=== PATIENT | female | born 1960 | race Caucasian/White ===

== ENCOUNTER 2018-10-20 07:13 | Day surgery (SDC) | payer OTHER ==
[~2018-10-20] VITALS: Ht 157.5 cm; Wt 69.3 kg
[~2018-10-20 07:13] MED LIST: HYDR-3245 PO; LEVO112T4 PO
[2018-10-20 08:15] VITALS: BP 157/91
[2018-10-20] MEDS ORDERED: LACTATED RINGERS 1,000 ML IV SCH (08:21)
[2018-10-20] MEDS ORDERED: FENTANYL PF 250 MCG/5ML ONE (09:03)
[2018-10-20] MEDS ORDERED: MIDAZOLAM 1 MG/ML, 2ML ONE (09:03)
[2018-10-20] MEDS ORDERED: PROPOFOL 50 ML ONE (09:04)
[2018-10-20] MEDS ORDERED: ONDANSETRON ODT 8 MG ONE (09:10)
[2018-10-20] MEDS ORDERED: ACETAMINOPHEN 500 MG TABLET ONE (09:10)
[2018-10-20] MEDS ORDERED: GABAPENTIN 300 MG CAPSULE ONE (09:10)
[2018-10-20] MEDS ORDERED: ONDANSETRON 2MG/ML, 2ML ONE (09:27)
[2018-10-20] MEDS ORDERED: CEFAZOLIN 1,000 MG ONE (09:27)
[2018-10-20] MEDS ORDERED: DEXAMETHASONE 4 MG/ML, 1ML ONE (09:27)
[2018-10-20] MEDS ORDERED: KETOROLAC 30 MG/1 ML ONE (09:27)
[2018-10-20] MEDS ORDERED: GABAPENTIN 300 MG CAPSULE PO ONE (09:30)
[2018-10-20] MEDS ORDERED: ACETAMINOPHEN 500 MG TABLET PO ONE (09:30)
[2018-10-20] MEDS ORDERED: ONDANSETRON ODT 8 MG PO ONE (09:30)
[2018-10-20] MEDS ORDERED: EPHEDRINE 50 MG/ML, 1ML IM PRN (10:00)
[2018-10-20] MEDS ORDERED: MIDAZOLAM 1 MG/ML, 2ML IV PRN (10:00)
[2018-10-20] MEDS ORDERED: PROMETHAZINE 25 MG SUPP PR PRN (10:00)
[2018-10-20] MEDS ORDERED: PROMETHAZINE 12.5 MG SUPP PR PRN (10:00)
[2018-10-20] MEDS ORDERED: MEPERIDINE/PF 25MG/0.5ML IVPush PRN (10:00)
[2018-10-20] MEDS ORDERED: DIPHENHYDRAMINE 50 MG/ML, 1ML IVPush PRN (10:00)
[2018-10-20] MEDS ORDERED: ONDANSETRON ODT 8 MG PO PRN (10:00)
[2018-10-20] MEDS ORDERED: ONDANSETRON 2MG/ML, 2ML IV PRN (10:00)
[2018-10-20] MEDS ORDERED: OXYcodone 5 MG/5 ML ORAL.SOL UDC ONE ×2 (10:43→11:15)
[2018-10-20] MEDS ORDERED: FENTANYL PF 100 MCG/2ML ONE (10:43)
[2018-10-20] MEDS: OXYcodone 5 MG/5 ML ORAL.SOL UDC PO PRN ×2 (10:45→11:19)
[2018-10-20] MEDS: FENTANYL PF 100 MCG/2ML IV PRN ×2 (10:47→10:59)
[2018-10-20] MEDS ORDERED: morphine SULFATE 10 MG/ML, 1ML ONE ×2 (11:15→11:59)
[2018-10-20] MEDS: MORPHINE SULFATE 4 MG/ML, 1ML IVPush PRN ×4 (11:19→12:00)
== END 2018-10-20 16:25 | disposition home or self-care (01) ==
LOC: OUT 07:13
PROVIDERS: ATTEND Orthopaedic Surgery
DX: S82.092A Other fracture of left patella, initial encounter for closed fracture (principal); W19.XXXA Unspecified fall, initial encounter; Y93.89 Activity, other specified; Y92.89 Other specified places as the place of occurrence of the external cause; Y99.8 Other external cause status
CPT/HCPCS: 27524; 73560; 76000; C1713; J0690; J1100; J1885; J2250; J2405; J2704; J3010; J7120; Q0162